=== PATIENT | female | born 1975 | race Caucasian/White ===

== ENCOUNTER 2018-04-23 09:31 | Observation (INO) ==
[2018-04-23] MEDS ORDERED: Lidocaine 1%/Epinephrine 1:100,000 Inj 20 ML Vial INFILTRATN ONE (09:54)
[2018-04-23] MEDS ORDERED: Vancomycin Inj 1 GM/200 ML PIGGYBACK IV.SIG ONE (09:57)
--- NOTE | 2018-04-23 09:57 | ED ---
HPI General Chief complaint: Skin/Abscess/Foreign Body Stated complaint: Right side oral swelling Time Seen by Provider: 04/23/18 09:46 Source: patient, RN notes reviewed and old records reviewed Mode of arrival: ambulatory Limitations: no limitations History of Present Illness HPI narrative: 43-year-old female presents to the emergency department for evaluation of facial abscess that started 2 days ago and has worsened. She states she believed to start with an ingrown hair at the corner of her right mouth. Since then she has had swelling to the right cheek. She denies any fevers or chills. She has type I diabetic and states that she is on Lantus. She also has a fast acting insulin that she can use, but does not use very often. She does not know what her blood glucose is at this time and has not checked it recently. She denies any other medical problems. Current pain is 10 /10, aching and throbbing, without radiation. Moderate severity. MD complaint: abscess/boil Onset (ago): day(s) (2) Location: face Severity: moderate Severity scale (1-10): 10 Quality: aching Pain Consistency: constant Relieving factors: none Exacerbating factors: none Context: none Associated symptoms: denies other symptoms Treatments prior to arrival: NSAID Related Data Home Medications Medication Instructions Recorded Confirmed insulin glargine [Lantus Solostar 25 unit SUB-Q DAILY 04/23/18 04/23/18 U-100 Insulin] Allergies Allergy/AdvReac Type Severity Reaction Status Date / Time No Known Allergies Allergy Mild Abdominal Uncoded 04/23/18 09:56 Pain Review of Systems Except as stated in HPI: all other systems reviewed are negative PMFSH Medical History Medical History Diabetes mellitus (Acute) [place] teeth extracted (Acute) Family History Family History Mother HTN (hypertension) Father Diabetes Heart disease Social History Social History Substance History: No History of Abuse Second Hand Smoke Exposure: No Smoking Status: Never smoker How Often Do You Have a Drink Containing Alcohol: Never Recent Travel in [facility] within the Last 8 Weeks: No Recent Out of Country Travel within the Last 8 Weeks: No Exam Narrative Exam Narrative: GENERAL: Well-nourished, well-developed female patient, afebrile. SKIN: Focused skin assessment warm/dry. Patient has area of induration to the cheek, just lateral to the right side of the mouth with significant swelling. No active drainage. No swelling that extends beyond the mandibular edge HEAD: Normocephalic. Atraumatic EYES: No scleral icterus. No injection or drainage. NECK: Supple, trachea midline. No JVD or lymphadenopathy. CARDIOVASCULAR: Regular rate and rhythm without murmurs, gallops, or rubs. RESPIRATORY: Breath sounds equal bilaterally. No accessory muscle use. Lung sounds are clear to auscultation GASTROINTESTINAL: Abdomen soft, non-tender, nondistended. MUSCULOSKELETAL: No cyanosis, or edema. BACK: No obvious deformity. Procedures Abscess I/D Site: face Side (if applicable): right Anesthetic used: with epi Technique: other (small puncture with #11 blade) Packing used?: none Course Initial Documented Vital Signs Temperature 98.1 F 04/23/18 09:37 Pulse Rate 90 04/23/18 09:37 Respiratory Rate 14 04/23/18 09:37 Blood Pressure 138/76 04/23/18 09:37 Pulse Oximetry 98 04/23/18 09:37 Last Documented Vital Signs Temperature 98.8 F 04/24/18 08:00 Pulse Rate 84 04/24/18 03:44 Respiratory Rate 18 04/24/18 08:00 Blood Pressure 116/66 04/24/18 08:00 Pulse Oximetry 96 04/24/18 08:00 Medical Decision Making SOPHIA Attestation SOPHIA supervised visit: Yes Attestation: The history, exam, and medical decision-making in the associated midlevel provider note were completed with my assistance. I reviewed and agree with the findings presented. I attest that I had a [id number] encounter with the patient on the same day, and personally performed and documented my assessment and findings in the medical record. *My assessment and Findings:This is a 43 year old female with history of type 1 diabetes who has an abscess on the right face. She has an impressive exam with extension of fluctuance up to the maxilla. Superficial incision and drainage was performed by ED nurse practitioner and pt will be admitted for IV antibiotics due to her history of T1DM. MDM Narrative Medical decision making narrative: 43-year-old female presents to the emergency department for facial abscess with significant swelling for 2 days. Patient is type I diabetic. She does not know what her blood sugar has been running. I discussed my attending physician, Dr. Erickson, who also examined patient. She recommends labs, admission. IV access is obtained. CBC, BMP, lactic acid, blood cultures 2, CT facial bones with IV contrast are ordered and pending. Tetanus immunization is updated. Patient is given normal saline 1 L IV bolus, vancomycin 1 g IV. Patient is given [place] 5/325 mg p.o. for pain. Patient gives verbal consent for drainage. CBC shows leukocytosis of 12.0. BMP shows carbon dioxide of 18.1, hyperglycemis of 169. Lactic acid is 0.9. UPT is negative. CT of the facial bones shows soft tissue swelling and phlegmonous changes over the right malar eminence without evidence of abscess. Residents accepted admission. Lab Data Lab results reviewed: Yes I reviewed the patient's lab results. Result diagrams: 04/24/18 05:40 04/24/18 05:40 Lab Results 04/23/18 04/23/18 04/23/18 Range/Units 10:18 10:18 10:18 WBC 12.0 H (4.0-11.0) th/mm3 RBC 4.80 (4.00-5.30) mil/mm3 Hgb 14.4 (11.6-15.3) gm/dL Hct 43.1 (35.0-46.0) % MCV 89.8 (80.0-100.0) fL MCH 30.0 (27.0-34.0) pg MCHC 33.4 (32.0-36.0) % RDW 14.1 (11.6-17.2) % Plt Count 296 (150-450) th/mm3 MPV 8.6 (7.0-11.0) fL Neut % (Auto) 79.8 H (16.0-70.0) % Lymph % (Auto) 11.9 (9.0-44.0) % Thayer % (Auto) 6.3 (0.0-8.0) % Eos % (Auto) 1.6 (0.0-4.0) % Baso % (Auto) 0.4 (0.0-2.0) % Neut # (Auto) 9.6 H (1.8-7.7) th/mm3 Lymph # (Auto) 1.4 (1.0-4.8) th/mm3 Thayer # (Auto) 0.8 (0.0-0.9) th/mm3 Eos # (Auto) 0.2 (0.0-0.4) th/mm3 Baso # (Auto) 0.1 (0.0-0.2) th/mm3 WBC Differential . Differential Comment Auto diff final Sodium 136 (136-145) meq/L Potassium 4.0 (3.5-5.1) meq/L Chloride 104 (98-107) meq/L Carbon Dioxide 18.1 L (21.0-32.0) meq/L Anion Gap 14 (5-15) meq/L BUN 14 (7-18) mg/dL Creatinine 0.54 (0.50-1.00) mg/dL Estimated GFR Greater than 89 (>89) mL/min POC Glucose (68-110) mg/dl Random Glucose 169 H (74-106) mg/dL Lactic Acid 0.9 (0.4-2.0) mmol/L Calcium 8.5 (8.5-10.1) mg/dL 04/23/18 04/23/18 04/23/18 Range/Units 17:01 18:00 21:38 WBC (4.0-11.0) th/mm3 RBC (4.00-5.30) mil/mm3 Hgb (11.6-15.3) gm/dL Hct (35.0-46.0) % MCV (80.0-100.0) fL MCH (27.0-34.0) pg MCHC (32.0-36.0) % RDW (11.6-17.2) % Plt Count (150-450) th/mm3 MPV (7.0-11.0) fL Neut % (Auto) (16.0-70.0) % Lymph % (Auto) (9.0-44.0) % Thayer % (Auto) (0.0-8.0) % Eos % (Auto) (0.0-4.0) % Baso % (Auto) (0.0-2.0) % Neut # (Auto) (1.8-7.7) th/mm3 Lymph # (Auto) (1.0-4.8) th/mm3 Thayer # (Auto) (0.0-0.9) th/mm3 Eos # (Auto) (0.0-0.4) th/mm3 Baso # (Auto) (0.0-0.2) th/mm3 WBC Differential Differential Comment Sodium (136-145) meq/L Potassium (3.5-5.1) meq/L Chloride (98-107) meq/L Carbon Dioxide (21.0-32.0) meq/L Anion Gap (5-15) meq/L BUN (7-18) mg/dL Creatinine (0.50-1.00) mg/dL Estimated GFR (>89) mL/min POC Glucose 41 L* 132 H 262 H (68-110) mg/dl Random Glucose (74-106) mg/dL Lactic Acid (0.4-2.0) mmol/L Calcium (8.5-10.1) mg/dL 04/24/18 04/24/18 04/24/18 Range/Units 05:40 05:40 08:41 WBC 8.8 (4.0-11.0) th/mm3 RBC 4.35 (4.00-5.30) mil/mm3 Hgb 13.1 (11.6-15.3) gm/dL Hct 39.2 (35.0-46.0) % MCV 90.2 (80.0-100.0) fL MCH 30.2 (27.0-34.0) pg MCHC 33.5 (32.0-36.0) % RDW 14.0 (11.6-17.2) % Plt Count 269 (150-450) th/mm3 MPV 8.5 (7.0-11.0) fL Neut % (Auto) (16.0-70.0) % Lymph % (Auto) (9.0-44.0) % Thayer % (Auto) (0.0-8.0) % Eos % (Auto) (0.0-4.0) % Baso % (Auto) (0.0-2.0) % Neut # (Auto) (1.8-7.7) th/mm3 Lymph # (Auto) (1.0-4.8) th/mm3 Thayer # (Auto) (0.0-0.9) th/mm3 Eos # (Auto) (0.0-0.4) th/mm3 Baso # (Auto) (0.0-0.2) th/mm3 WBC Differential Differential Comment Sodium 145 (136-145) meq/L Potassium 3.3 L (3.5-5.1) meq/L Chloride 110 H (98-107) meq/L Carbon Dioxide 25.0 (21.0-32.0) meq/L Anion Gap 10 (5-15) meq/L BUN 13 (7-18) mg/dL Creatinine 0.44 L (0.50-1.00) mg/dL Estimated GFR Greater than 89 (>89) mL/min POC Glucose 58 L (68-110) mg/dl Random Glucose 46 L* D (74-106) mg/dL Lactic Acid (0.4-2.0) mmol/L Calcium 7.8 L (8.5-10.1) mg/dL 04/24/18 Range/Units 09:29 WBC (4.0-11.0) th/mm3 RBC (4.00-5.30) mil/mm3 Hgb (11.6-15.3) gm/dL Hct (35.0-46.0) % MCV (80.0-100.0) fL MCH (27.0-34.0) pg MCHC (32.0-36.0) % RDW (11.6-17.2) % Plt Count (150-450) th/mm3 MPV (7.0-11.0) fL Neut % (Auto) (16.0-70.0) % Lymph % (Auto) (9.0-44.0) % Thayer % (Auto) (0.0-8.0) % Eos % (Auto) (0.0-4.0) % Baso % (Auto) (0.0-2.0) % Neut # (Auto) (1.8-7.7) th/mm3 Lymph # (Auto) (1.0-4.8) th/mm3 Thayer # (Auto) (0.0-0.9) th/mm3 Eos # (Auto) (0.0-0.4) th/mm3 Baso # (Auto) (0.0-0.2) th/mm3 WBC Differential Differential Comment Sodium (136-145) meq/L Potassium (3.5-5.1) meq/L Chloride (98-107) meq/L Carbon Dioxide (21.0-32.0) meq/L Anion Gap (5-15) meq/L BUN (7-18) mg/dL Creatinine (0.50-1.00) mg/dL Estimated GFR (>89) mL/min POC Glucose 81 (68-110) mg/dl Random Glucose (74-106) mg/dL Lactic Acid (0.4-2.0) mmol/L Calcium (8.5-10.1) mg/dL Imaging Data Radiologist's impression: Face CT 04/23/18 09:57 CONCLUSION: 1. Soft tissue swelling and phlegmonous changes over the right malar eminence without evidence of abscess Discharge Plan Discharge Disposition Patient Disposition: 30 Still Patient Discharge Details Diagnosis: Cellulitis and abscess of face Physicians Team ED Provider: [place] Erickson ED Midlevel Provider: Kasey Rodriguez Primary Care Provider: Primary Care Stephanie De León Attending Provider: Dayan Victor Status ED Status: Left Department Discharge Information Discharge Date/Time: 04/23/18 16:54
[2018-04-23] MEDS ORDERED: Sod Chloride 0.9% Inj 1,000 ML IV.SIG ONE (10:00)
[2018-04-23] MEDS ORDERED: Tetanus/Diphtheria Toxoid Adult Vaccine Inj 0.5 ML Vial IM ONE (10:02)
[2018-04-23] MEDS ORDERED: Vancomycin Inj 1,000 MG in Sodium Chlor 0.9% Inj 250 ML IV.SIG ONE (10:15)
[2018-04-23 10:31] LABS: Baso # (Auto) 0.1 th/mm3 (0.0-0.2); Baso % (Auto) 0.4 % (0.0-2.0); Eos # (Auto) 0.2 th/mm3 (0.0-0.4); Eos % (Auto) 1.6 % (0.0-4.0); Hematocrit 43.1 % (35.0-46.0); Hemoglobin 14.4 gm/dL (11.6-15.3); Lymph # (Auto) 1.4 th/mm3 (1.0-4.8); Lymph % (Auto) 11.9 % (9.0-44.0); Mean Corpuscular HGB Conc 33.4 % (32.0-36.0); Mean Corpuscular Volume 89.8 fL (80.0-100.0); Mean Platelet Volume 8.6 fL (7.0-11.0); Mono # (Auto) 0.8 th/mm3 (0.0-0.9); Mono % (Auto) 6.3 % (0.0-8.0); Neut # (Auto) 9.6 th/mm3 (1.8-7.7); Neut % (Auto) 79.8 % (16.0-70.0); Platelet Count 296 th/mm3 (150-450); Red Cell Distribution Width 14.1 % (11.6-17.2)
[2018-04-23] MEDS ORDERED: Lidocaine 1%/Epinephrine 1:100,000 Inj 30 ML Vial INFILTRATN ONE (10:45)
[2018-04-23 10:53] LABS: Anion Gap 14 meq/L (5-15); Blood Urea Nitrogen 14 mg/dL (7-18); Calcium 8.5 mg/dL (8.5-10.1); Carbon Dioxide 18.1 meq/L (21.0-32.0); Chloride 104 meq/L (98-107); Glomerular Filtration Rate Greater Than 89 mL/min (>89); Glucose,Random 169 mg/dL (74-106); Sodium 136 meq/L (136-145)
--- NOTE | 2018-04-23 13:31 | CT ---
EXAM DATE: 04/23/2018 1:24 PM EDT AGE/SEX: 43 years / Female INDICATIONS: Right side facial swelling and pain. CLINICAL DATA: This is the patient's initial encounter. Patient reports that signs and symptoms have been present for 2 days and indicates a pain score of 8/10. MEDICAL/SURGICAL HISTORY: None. . [place] teeth removed. RADIATION DOSE: 56.28 CTDI (mGy) COMPARISON: No prior exams available for comparison. TECHNIQUE: Contiguous images in the axial and coronal planes were obtained using helical multirow de tector technique with 80 ml Omnipaque 350 (iohexol) nonionic water-soluble contrast as a single exam dose. Using automated exposure control and adjustment of the mA and/or kV according to patient size , radiation dose was kept as low as reasonably achievable to obtain optimal diagnostic quality images . DICOM format image data is available electronically for review and comparison. FINDINGS: There is soft tissue swelling over the malar eminence in the subcutaneous tissues with phlegmon measu ring 2 cm in diameter but no evidence of abscess. There is benign mucosal disease involving the maxil robert antra bilaterally. Bone windows are unremarkable. The parotid and submandibular glands demonstra te no abnormality. No deeply infiltrating lesions are identified. CONCLUSION: 1. Soft tissue swelling and phlegmonous changes over the right malar eminence without evidence of ab scess Electronically signed by: Haider Chamorro MD 04/23/2018 1:29 PM EDT
--- NOTE | 2018-04-23 14:20 | P.HPFP ---
History of Present Illness Primary Care Physician: No Primary Care Physician <Dayan Victor 04/24/18 07:15> No Primary Care Physician <Roslyn Pringle 04/23/18 14:20> Chief Complaint: facial swelling and pain <Roslyn Pringle 04/23/18 19:29> History of Present Illness: 43 year old female with history of DM presented urgent care earlier today for right-sided facial swelling and pain that started 3 days ago, but worsened significantly last night. Patient states that it started out as a small pimple, or ingrown hair near the right corner of her mouth, no known bug bites. This morning when she woke with right cheek redness and swelling, which extended from her chin up under her eye. No blurry vision or blindness. She states that her eye is slightly bloodshot from accidently hitting her head about 1 week ago. No direct trauma to the eye or face that she remembers. She states that she was still able to open and see out of her right eye, but that the swelling made it more difficult to do so. She also noticed scant pus-like discharge from a single central point of the swollen area. Her face has been very sensitive to light touch and the pain is worse when speaking or chewing. She has avoided eating any food since yesterday for this reason. She has never experienced this in the past. She has taken 2 tablets of Aleve today with no relief. Denies headache, dizziness, nausea, vomiting, trouble swallowing or breathing, decreased range of motion of the neck, swelling of the upper eye lid or neck, chest pain, or shortness of breath. She last took her lantus this morning. She currently lives alone in a town house in [place]. She works as [employer]. <Roslyn Pringle 04/23/18 19:29> - Diagnosis (1) Cellulitis and abscess of face (2) Diabetes mellitus <Dayan Victor 04/24/18 07:15> (1) Cellulitis and abscess of face (2) Diabetes mellitus (3) Nutrition, metabolism, and development symptoms (4) DVT prophylaxis <Roslyn Pringle 04/23/18 18:39> Inpatient Certification: Corrected documentation: Pt is admitted under observation. <Dayan Victor 04/24/18 07:15> I certify that the inpatient services were ordered in accordance with Medicare regulations governing the order. This includes certification that hospital inpatient services are reasonable and necessary and in the case of services not specified as inpatient-only under 42 CFR 419.22(n), that they are appropriately provided as inpatient services in accordance to with the 2-midnight benchmark under 43 CFR 412.3(e) <Roslyn Pringle 04/23/18 14:20> Review of Systems Constitutional: Reports fever(s) (subjective fever last night ), Denies chills, Denies night sweats <Roslyn Pringle 04/23/18 15:38> Eyes: Reports change in vision <Roslyn Pringle 04/23/18 15:38> Ears, Nose, Mouth, and Throat: Reports facial pain, Denies ear pain, Denies hearing loss <Roslyn Pringle 04/23/18 15:38> Cardiovascular: Denies chest pain <Roslyn Pringle 04/23/18 15:38> Respiratory: Denies chest congestion, Denies shortness of breath <Roslyn Pringle 04/23/18 15:38> Gastrointestinal: Denies abdominal pain, Denies constipation, Denies nausea, Denies vomiting <Roslyn Pringle 04/23/18 15:38> PMFSH - History History Provided By: Patient <Roslyn Pringle 04/23/18 14:20> - Medical History Medical History: Medical History (Last Updated 04/23/18 @ 18:57 by Roslyn Pringle) Diabetes mellitus [place] teeth extracted <Dayan Victor - 04/24/18 07:15> Medical History (Last Updated 04/23/18 @ 18:57 by Roslyn Pringle) Diabetes mellitus [place] teeth extracted <Roslyn Pringle 04/23/18 19:29> - Family History Family History: Family History (Last Updated 04/23/18 @ 18:57 by Roslyn Pringle) Mother HTN (hypertension) Father Diabetes Heart disease <Dayan Victor - 04/24/18 07:15> Family History (Last Updated 04/23/18 @ 18:57 by Roslyn Pringle) Mother HTN (hypertension) Father Diabetes Heart disease <Roslyn Pringle 04/23/18 19:29> - Tobacco History Second Hand Smoke Exposure: No <PinoRoslyn Kelsie 04/23/18 14:20> Smoking Status: Never smoker <PinoPamelaRoslyn B 04/23/18 14:20> - Alcohol History How Often Do You Have a Drink Containing Alcohol: Never <PinoRoslyn Kelsie 14:20> - Substance Use History Substance History: No History of Abuse <PinoRoslyn B 04/23/18 19:29> - Travel History Recent Travel in the [facility] Within the Last 8 Weeks: No <PinoRoslyn B 14:20> Recent Travel Out of the Country Within the Last 8 Weeks: No <PinoRoslyn B 04/23/18 14:20> - Immunization History Tetanus Immunization: Unsure <PinoRoslyn B 04/23/18 14:20> Medications and Allergies Allergies Allergy/AdvReac Type Severity Reaction Status Date / Time No Known Allergies Allergy Mild Abdominal Uncoded 04/23/18 09:56 Pain <Dayan Victor 04/24/18 07:15> Home Medications Medication Instructions Recorded Confirmed Type insulin glargine [Lantus Solostar 25 unit SUB-Q DAILY 04/23/18 04/23/18 History U-100 Insulin] <Dayan Victor 04/24/18 07:15> Active Medications: Active Medications Dextrose (D50w Vial) 50 ml IV.PUSH UNSCH PRN PRN Reason: PER HYPOGLYCEMIA PROTOCOL Glucagon (Glucagon Inj) 1 mg OTHER PRN PRN PRN Reason: for Hypoglycemia Protocol Pharmacy Profile Note (Vancomycin Consult Pharmacy) 0 mls @ 0 mls/hr OTHER UNSCH MICHAEL Vancomycin HCl 1,000 mg/ (Sodium Chloride) 250 mls @ 250 mls/hr IV.SIG Q8H MICHAEL Last Infusion: 04/23/18 19:20 Dose: 250 mls/hr Insulin Aspart (Novolog Insulin Suppl Scale Inj) 0 unit SQ ACHS MICHAEL; Protocol Last Admin: 04/23/18 21:48 Dose: 5 unit Insulin Detemir (Levemir Inj) 25 unit SQ DAILY MICHAEL Ketorolac Tromethamine (Toradol Inj) 15 mg IV.PUSH Q6H PRN PRN Reason: PAIN 3-5; IF UABLE TO TAKE PO Stop: 04/28/18 17:39 Ketorolac Tromethamine (Toradol Inj) 30 mg IV.PUSH Q6H PRN PRN Reason: PAIN 6-10;IF UNABLE TO TAKE PO Stop: 04/28/18 17:39 Last Admin: 04/23/18 21:45 Dose: 30 mg Miscellaneous Information ([facility] Ordered Lab Info) 0 each OTHER ONCE ONE Stop: 04/24/18 09:46 Morphine Sulfate (Morphine Inj) 4 mg IV.PUSH Q3H PRN PRN Reason: BREAKTHROUGH PAIN Last Admin: 04/23/18 18:03 Dose: 4 mg Naloxone HCl (Narcan Inj) 0.4 mg IV.PUSH UNSCH PRN PRN Reason: SEE LABEL COMMENTS Sodium Chloride (Ns Flush) 2 ml IV.FLUSH BID MICHAEL Last Admin: 04/23/18 22:00 Dose: 2 ml Sodium Chloride (Ns Flush) 2 ml IV.FLUSH PRN PRN PRN Reason: FLUSH AFTER USING IV ACCESS <Dayan Victor - 04/24/18 07:15> Exam Vital signs: Vital Signs 04/23/18 09:37 04/23/18 11:35 04/23/18 12:02 Temperature 98.1 F Pulse Rate 90 Respiratory Rate 14 18 18 Blood Pressure 138/76 119/71 Pulse Oximetry 98 97 04/23/18 16:00 04/23/18 18:57 04/23/18 21:13 Temperature 98.8 F 98.6 F Pulse Rate 85 92 H Respiratory Rate 14 18 17 Blood Pressure 107/61 114/70 Pulse Oximetry 96 95 04/24/18 00:01 04/24/18 00:12 04/24/18 01:28 Temperature 98.3 F Pulse Rate 84 Respiratory Rate 14 17 Blood Pressure 86/49 L 113/56 L Pulse Oximetry 96 04/24/18 03:44 Temperature 98.1 F Pulse Rate 84 Respiratory Rate 16 Blood Pressure 102/59 L Pulse Oximetry 98 Intake & Output 04/23/18 04/24/18 04/24/18 18:59 06:59 18:59 Intake Total 980 / 980 Balance 980 / 980 Weight 86.581 kg Intake: Oral 980 / 980 Other: # Voids 1 Weight On Admission 190 kg <Dayan Victor - 04/24/18 07:15> Vital Signs 04/23/18 09:37 04/23/18 11:35 04/23/18 12:02 Temperature 98.1 F Pulse Rate 90 Respiratory Rate Blood Pressure 138/76 119/71 Pulse Oximetry 98 97 Intake & Output 04/22/18 04/23/18 04/23/18 18:59 06:59 18:59 Weight 86 kg <Roslyn Pringle Kelsie - 04/23/18 14:20> Narrative: Narrative: GENERAL:patient sitting up in bed watching television, mild distress due to pain SKIN: Warm and dry. HEAD: Atraumatic. Normocephalic. 4x4 cm area of erythematous induration without fluctuance over maxillary area. 10x10 cm area of surrounding edema and warmth, with mild erythema. No extension into neck. Central punctate lesion, likely where I&D was performed in ED. No active bleeding or drainage. No preorbital swelling. No pain to palpation of maxillary sinuses. EYES: No scleral icterus. Right eye mild conjunctival injection, per patient present for 1-2 weeks. ENT: No nasal bleeding or discharge. NECK: Trachea midline. No JVD. No swelling. CARDIOVASCULAR: Regular rate and rhythm. RESPIRATORY: No accessory muscle use. Clear to auscultation. Breath sounds equal bilaterally. GASTROINTESTINAL: Abdomen soft, non-tender, nondistended. MUSCULOSKELETAL: : Extremities without clubbing, cyanosis, or edema. No obvious deformities. NEUROLOGICAL: Awake and alert. No obvious cranial nerve deficits. Motor grossly within normal limits. Normal speech. <Roslyn Prinlge Kelsie - 04/23/18 19:29> Results - Labs Result diagrams: 04/23/18 10:18 04/23/18 10:18 <Dayan Victor - 04/24/18 07:15> Abnormal lab results 04/23/18 04/23/18 04/23/18 Range/Units 10:18 10:18 17:01 WBC 12.0 H (4.0-11.0) th/mm3 Neut % (Auto) 79.8 H (16.0-70.0) % Neut # (Auto) 9.6 H (1.8-7.7) th/mm3 Carbon Dioxide 18.1 L (21.0-32.0) meq/L POC Glucose 41 L* (68-110) mg/dl Random Glucose 169 H (74-106) mg/dL 04/23/18 04/23/18 Range/Units 18:00 21:38 WBC (4.0-11.0) th/mm3 Neut % (Auto) (16.0-70.0) % Neut # (Auto) (1.8-7.7) th/mm3 Carbon Dioxide (21.0-32.0) meq/L POC Glucose 132 H 262 H (68-110) mg/dl Random Glucose (74-106) mg/dL Short CBC 04/23/18 Range/Units 10:18 WBC 12.0 H (4.0-11.0) th/mm3 Hgb 14.4 (11.6-15.3) gm/dL Hct 43.1 (35.0-46.0) % Plt Count 296 (150-450) th/mm3 [facility] 04/23/18 10:18 Sodium 136 Potassium 4.0 Chloride 104 Carbon Dioxide 18.1 L BUN 14 Creatinine 0.54 Calcium 8.5 <Dayan Victor - 04/24/18 07:15> Abnormal lab results 04/23/18 04/23/18 Range/Units 10:18 10:18 WBC 12.0 H (4.0-11.0) th/mm3 Neut % (Auto) 79.8 H (16.0-70.0) % Neut # (Auto) 9.6 H (1.8-7.7) th/mm3 Carbon Dioxide 18.1 L (21.0-32.0) meq/L Random Glucose 169 H (74-106) mg/dL Short CBC 04/23/18 Range/Units 10:18 WBC 12.0 H (4.0-11.0) th/mm3 Hgb 14.4 (11.6-15.3) gm/dL Hct 43.1 (35.0-46.0) % Plt Count 296 (150-450) th/mm3 [facility] 04/23/18 10:18 Sodium 136 Potassium 4.0 Chloride 104 Carbon Dioxide 18.1 L BUN 14 Creatinine 0.54 Calcium 8.5 <Roslyn Pringle - 04/23/18 14:20> - Imaging Impressions Face CT 04/23/18 09:57 CONCLUSION: 1. Soft tissue swelling and phlegmonous changes over the right malar eminence without evidence of abscess <Dayan Victor - 04/24/18 07:15> Impressions Face CT 04/23/18 09:57 CONCLUSION: 1. Soft tissue swelling and phlegmonous changes over the right malar eminence without evidence of abscess <Roslyn Pringle - 04/23/18 14:20> Caprinacndace VTE Risk Assessment Caprini VTE Risk Assessment: No/Low Risk (score <= 1) <Roslyn Pringle - 04/23 19:29> Caprini Risk Assessment Model: Point Value = 1 Point Value = 2 Point Value = 3 Point Value = 5 Age 41-60 Minor surgery BMI > 25 kg/m2 Swollen legs Varicose veins or History of unexplained or recurrent spontaneous Oral contraceptives or hormone replacement Sepsis (< 1 month) Serious lung disease, including pneumonia (< 1 month) Abnormal pulmonary function Acute myocardial infarction Congestive heart failure (< 1 month) History of inflammatory bowel disease Medical patient at bed rest Age 61-74 Arthroscopic surgery Major open surgery (> 45 min) Laparoscopic surgery (> 45 min) Malignancy Confined to bed (> 72 hours) Immobilizing plaster cast Central venous access Age >= 75 History of VTE Family history of VTE Factor V Leiden Prothrombin [id number] Lupus anticoagulant Anticardiolipin antibodies Elevated serum homocysteine Heparin-induced thrombocytopenia Other congenital or acquired thrombophilia Stroke (< 1 month) Elective arthroplasty Hip, pelvis, or leg fracture Acute spinal cord injury (< 1 month) <Dayan Victor - 04/24/18 07:15> Point Value = 1 Point Value = 2 Point Value = 3 Point Value = 5 Age 41-60 Minor surgery BMI > 25 kg/m2 Swollen legs Varicose veins or History of unexplained or recurrent spontaneous Oral contraceptives or hormone replacement Sepsis (< 1 month) Serious lung disease, including pneumonia (< 1 month) Abnormal pulmonary function Acute myocardial infarction Congestive heart failure (< 1 month) History of inflammatory bowel disease Medical patient at bed rest Age 61-74 Arthroscopic surgery Major open surgery (> 45 min) Laparoscopic surgery (> 45 min) Malignancy Confined to bed (> 72 hours) Immobilizing plaster cast Central venous access Age >= 75 History of VTE Family history of VTE Factor V Leiden Prothrombin [id number] Lupus anticoagulant Anticardiolipin antibodies Elevated serum homocysteine Heparin-induced thrombocytopenia Other congenital or acquired thrombophilia Stroke (< 1 month) Elective arthroplasty Hip, pelvis, or leg fracture Acute spinal cord injury (< 1 month) <Roslyn Pringle - 04/23/18 14:20> Prophylaxis Regimen: Total Risk Factor Score Risk Level Prophylaxis Regimen 0-1 Low Early ambulation 2 Moderate Order ONE of the following: *Sequential Compression Device (SCD) *Heparin 5000 units SQ BID 3-4 Higher Order ONE of the following medications: *Heparin 5000 units SQ TID *Enoxaparin/Lovenox 40 mg SQ daily (WT < 150 kg, CrCl > 30 mL/min) *Enoxaparin/Lovenox 30 mg SQ daily (WT < 150 kg, CrCl > 10-29 mL/min) *Enoxaparin/Lovenox 30 mg SQ BID (WT < 150 kg, CrCl > 30 mL/min) AND/OR *Sequential Compression Device (SCD) 5 or more Highest Order ONE of the following medications: *Heparin 5000 units SQ TID (Preferred with Epidurals) *Enoxaparin/Lovenox 40 mg SQ daily (WT < 150 kg, CrCl > 30 mL/min) *Enoxaparin/Lovenox 30 mg SQ daily (WT < 150 kg, CrCl > 10-29 mL/min) *Enoxaparin/Lovenox 30 mg SQ BID (WT < 150 kg, CrCl > 30 mL/min) AND *Sequential Compression Device (SCD) <Dayan Victor - 04/24/18 07:15> Total Risk Factor Score Risk Level Prophylaxis Regimen 0-1 Low Early ambulation 2 Moderate Order ONE of the following: *Sequential Compression Device (SCD) *Heparin 5000 units SQ BID 3-4 Higher Order ONE of the following medications: *Heparin 5000 units SQ TID *Enoxaparin/Lovenox 40 mg SQ daily (WT < 150 kg, CrCl > 30 mL/min) *Enoxaparin/Lovenox 30 mg SQ daily (WT < 150 kg, CrCl > 10-29 mL/min) *Enoxaparin/Lovenox 30 mg SQ BID (WT < 150 kg, CrCl > 30 mL/min) AND/OR *Sequential Compression Device (SCD) 5 or more Highest Order ONE of the following medications: *Heparin 5000 units SQ TID (Preferred with Epidurals) *Enoxaparin/Lovenox 40 mg SQ daily (WT < 150 kg, CrCl > 30 mL/min) *Enoxaparin/Lovenox 30 mg SQ daily (WT < 150 kg, CrCl > 10-29 mL/min) *Enoxaparin/Lovenox 30 mg SQ BID (WT < 150 kg, CrCl > 30 mL/min) AND *Sequential Compression Device (SCD) <Roslyn Pringle Kelsie - 04/23/18 14:20> Assessment and Plan - Assessment (1) Cellulitis and abscess of face Code(s): L03.211 - Cellulitis of face; L02.01 - Cutaneous abscess of face Status: Acute (2) Diabetes mellitus Code(s): E11.9 - Type 2 diabetes mellitus without complications Status: Chronic <Dayan Victor - 04/24/18 07:15> (1) Cellulitis and abscess of face Code(s): L03.211 - Cellulitis of face; L02.01 - Cutaneous abscess of face Status: Acute Plan: Patient presented with facial swelling and erythema. I&D performed in the ED drained scant discharge, wound culture pending. Patient had a WBC of 12.0 in the ED, but did not otherwise meet sepsis criteria. Labs: -CBC in ED showed WBC count of 12.0 -Blood cultures pending -Wound culture pending Medications: -Will give Vancomycin 1g q12h, pharmacy to follow Vancomycin Trough -Will order Ketorolac 15 mg IV PRN pain 3-5 and Ketorolac 30 mg IV PRN pain 6-10 -Will order Morphine 4mg IV PRN breakthrough pain (2) Diabetes mellitus Code(s): E11.9 - Type 2 diabetes mellitus without complications Status: Acute Plan: Patient has a history of diabetes mellitus for which she takes Lantus 25 units daily in the morning. She took her lantus this morning and notes that she has not eaten today. BGL this morning on arrival to ED was 169. -Will change Lantus to Levemir 25 units daily with insulin sliding scale -Will place on diabetic diet -Hypoglycemia protocol ordered (3) Nutrition, metabolism, and development symptoms Code(s): R63.8 - Other symptoms and signs concerning food and fluid intake Status: Acute Plan: Fluid: none Electrolytes: No abnormalities noted. Will continues to monitor and replete as needed. Nutrition: Diabetic diet (4) DVT prophylaxis Status: Acute Plan: DVT prophylaxis: Early ambulation. Bilateral SCDs. <PinoRoslyn B - 04/23/18 18:39> - Assessment and Plan 43 y/o F with hx of DM presenting to the ED with facial pain and swelling that started 3 days ago. Continue to give antibiotics and continue to monitor. <Roslyn Pringle - 04/23/18 19:29> <Dayan Victor - Last Filed: 04/24/18 07:15> (2) Diabetes mellitus Qualifiers: Diabetes mellitus type: type 2 Diabetes mellitus complication status: without complication <Dayan Victor - Last Filed: 04/24/18 07:15> (2) Diabetes mellitus Qualifiers: Diabetes mellitus type: type 2 Diabetes mellitus complication status: without complication
[2018-04-23] MEDS ORDERED: Dextrose 50% in Water 50 ML Vial IV.PUSH PRN (15:48)
[2018-04-23] MEDS ORDERED: Vancomycin Consult Pharmacy 1 EACH OTHER SCH (16:19)
[2018-04-23] MEDS ORDERED: Ketorolac Inj 30 MG/ML (IVP) Vial IV.PUSH PRN ×2 (17:40)
[2018-04-23] MEDS ORDERED: Naloxone Inj 0.4 MG/ML Vial IV.PUSH PRN (17:40)
[2018-04-23] MEDS ORDERED: Ibuprofen 400 MG Tablet PO PRN (17:40)
[2018-04-23] MEDS ORDERED: Morphine Inj 4 MG/ML Vial IV.PUSH PRN (17:40)
[2018-04-23] MEDS: Insulin NovoLOG Aspart Correctional Sugar Inj SQ SCH ×2 (17:49→21:48)
[2018-04-23] MEDS: Vancomycin Inj 1,000 MG in Sodium Chlor 0.9% Inj 250 ML IV.SIG SCH (18:07)
[2018-04-23] MEDS ORDERED: Vancomycin Inj 1 GM/200 ML PIGGYBACK IV.SIG SCH (22:00)
--- NOTE | 2018-04-24 07:08 | P.PNFP ---
Subjective Interval history: This progress note is written in conjunction with resident H&P dated 04/23/2018. Daniela Silva is a 43yo lady with h/o diabetes mellitus admitted for right sided facial pain and swelling, worsening over three days, which initially began as a small pimple. For further details, please see resident H&P. Overnight, Pt had an episode of hypoglycemia at 1700, most likely from decreased PO intake. This morning, she reports swelling is a little better. She denies any drainage. ROS: Per resident H&P. Significant for: subjective fever, facial swelling and pain. All other systems reviewed are negative. PMH/PSxH/SocHx/FamHx: Per resident H&P. Significant for: DM II. Nonsmoker. No alcohol or recreational drug use. Results - Labs Result diagrams: 04/24/18 05:40 04/24/18 05:40 Abnormal lab results 04/23/18 04/23/18 04/23/18 Range/Units 10:18 10:18 17:01 WBC 12.0 H (4.0-11.0) th/mm3 Neut % (Auto) 79.8 H (16.0-70.0) % Neut # (Auto) 9.6 H (1.8-7.7) th/mm3 Carbon Dioxide 18.1 L (21.0-32.0) meq/L POC Glucose 41 L* (68-110) mg/dl Random Glucose 169 H (74-106) mg/dL 04/23/18 04/23/18 Range/Units 18:00 21:38 WBC (4.0-11.0) th/mm3 Neut % (Auto) (16.0-70.0) % Neut # (Auto) (1.8-7.7) th/mm3 Carbon Dioxide (21.0-32.0) meq/L POC Glucose 132 H 262 H (68-110) mg/dl Random Glucose (74-106) mg/dL Short CBC 04/23/18 Range/Units 10:18 WBC 12.0 H (4.0-11.0) th/mm3 Hgb 14.4 (11.6-15.3) gm/dL Hct 43.1 (35.0-46.0) % Plt Count 296 (150-450) th/mm3 BMP 04/23/18 10:18 Sodium 136 Potassium 4.0 Chloride 104 Carbon Dioxide 18.1 L BUN 14 Creatinine 0.54 Calcium 8.5 - Imaging Impressions Face CT 04/23/18 09:57 CONCLUSION: 1. Soft tissue swelling and phlegmonous changes over the right malar eminence without evidence of abscess Physical Exam Vital signs: Vital Signs 04/23/18 09:37 04/23/18 11:35 04/23/18 12:02 Temperature 98.1 F Pulse Rate 90 Respiratory Rate 14 18 18 Blood Pressure 138/76 119/71 Pulse Oximetry 98 97 04/23/18 16:00 04/23/18 18:57 04/23/18 21:13 Temperature 98.8 F 98.6 F Pulse Rate 85 92 H Respiratory Rate 14 18 17 Blood Pressure 107/61 114/70 Pulse Oximetry 96 95 04/24/18 00:01 04/24/18 00:12 04/24/18 01:28 Temperature 98.3 F Pulse Rate 84 Respiratory Rate 14 17 Blood Pressure 86/49 L 113/56 L Pulse Oximetry 96 04/24/18 03:44 Temperature 98.1 F Pulse Rate 84 Respiratory Rate 16 Blood Pressure 102/59 L Pulse Oximetry 98 Intake & Output 04/23/18 04/24/18 04/24/18 18:59 06:59 18:59 Intake Total 980 / 980 Balance 980 / 980 Weight 86.581 kg Intake: Oral 980 / 980 Other: # Voids 1 Weight On Admission 190 kg Narrative: Per resident H&P. Significant for: In NAD, non toxic. Right face with swelling and mild erythema. There is an open wound along right chin, without drainage. Right anterior submandibular lymphadenopathy. No lesions in mouth; good dentition. Glucose at bedside during exam in 80s. Assessment and Plan - Assessment (1) Cellulitis and abscess of face Code(s): L03.211 - Cellulitis of face; L02.01 - Cutaneous abscess of face Status: Acute Plan: Patient presented with facial swelling and erythema. I&D performed in the ED drained scant discharge, wound culture pending. Patient had a WBC of 12.0 in the ED, now resolved Labs: -WBC 12--> 8 -Blood cultures pending -Wound culture pending Medications: -Will give Vancomycin 1g q12h, pharmacy to follow Vancomycin Trough -Ketorolac 15 mg IV PRN pain 3-5 and Ketorolac 30 mg IV PRN pain 6-10 -Morphine 4mg IV PRN breakthrough pain (2) Diabetes mellitus Code(s): E11.9 - Type 2 diabetes mellitus without complications Status: Chronic Plan: Patient has a history of diabetes mellitus for which she takes Lantus 25 units daily in the morning. She took her lantus this morning and notes that she has not eaten today. BGL this morning on arrival to ED was 169. -Lantus changed to Levemir 25 units daily with insulin sliding scale, per hospital formulary -diabetic diet -Hypoglycemia protocol ordered. Pt with episode of hypoglycemia at 1700, most likely from not eating, now resolved. May need to decrease long acting insulin dose if hypoglycemia continues. - Assessment and Plan 43 y/o F with hx of DM presenting to the ED with facial pain and swelling that started 3 days ago. Continue to give antibiotics and continue to monitor. Discharge Planning: Anticipate discharge in 1-2 days, as pt requires continued IV antibiotic therapy. - Attending Attestation Patient seen, examined, and discussed with resident team. 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
[2018-04-24 07:23] LABS: Hematocrit 39.2 % (35.0-46.0); Hemoglobin 13.1 gm/dL (11.6-15.3); Mean Corpuscular HGB Conc 33.5 % (32.0-36.0); Mean Corpuscular Hemoglobin 30.2 pg (27.0-34.0); Mean Corpuscular Volume 90.2 fL (80.0-100.0); Mean Platelet Volume 8.5 fL (7.0-11.0); Platelet Count 269 th/mm3 (150-450); Red Blood Count 4.35 mil/mm3 (4.00-5.30); White Blood Count 8.8 th/mm3 (4.0-11.0)
[2018-04-24] MEDS: Vancomycin Inj 1,000 MG in Sodium Chlor 0.9% Inj 250 ML IV.SIG SCH ×2 (07:39→18:17)
[2018-04-24 08:29] LABS: Anion Gap 10 meq/L (5-15); Blood Urea Nitrogen 13 mg/dL (7-18); Calcium 7.8 mg/dL (8.5-10.1); Chloride 110 meq/L (98-107); Glomerular Filtration Rate Greater Than 89 mL/min (>89); Potassium 3.3 meq/L (3.5-5.1); Sodium 145 meq/L (136-145)
[2018-04-24 08:40] LABS: Glucose,Random 46 mg/dL (74-106)
[2018-04-24] MEDS ORDERED: Pharmacy Ordered Lab Info OTHER ONE ×2 (09:45→22:45)
[2018-04-24] MEDS: Lactobacillus Acidophilus/L. Spores Tablet PO SCH ×3 (09:48→18:16)
[2018-04-24] MEDS: Insulin Detemir Inj 1,000 UNIT/10 ML Vial SQ SCH (09:48)
[2018-04-24] MEDS: Insulin NovoLOG Aspart Correctional Sugar Inj SQ SCH ×3 (09:49→18:17)
[2018-04-24] MEDS ORDERED: Potassium Chloride 10 MEQ ER Capsule PO ONE (10:30)
[2018-04-24] MEDS: Ketorolac Inj 30 MG/ML (IVP) Vial IV.PUSH SCH (18:13)
[2018-04-25] MEDS: Insulin NovoLOG Aspart Correctional Sugar Inj SQ SCH ×3 (01:55→13:54)
[2018-04-25] MEDS: Ketorolac Inj 30 MG/ML (IVP) Vial IV.PUSH SCH ×4 (02:06→15:11)
[2018-04-25] MEDS: Vancomycin Inj 1,000 MG in Sodium Chlor 0.9% Inj 250 ML IV.SIG SCH ×4 (03:46→09:56)
[2018-04-25] MEDS: Insulin Detemir Inj 1,000 UNIT/10 ML Vial SQ SCH (09:57)
[2018-04-25] MEDS: Lactobacillus Acidophilus/L. Spores Tablet PO SCH ×2 (09:57→13:54)
[2018-04-25 10:27] LABS: Hematocrit 41.7 % (35.0-46.0); Hemoglobin 13.8 gm/dL (11.6-15.3); Mean Corpuscular HGB Conc 33.1 % (32.0-36.0); Mean Corpuscular Hemoglobin 30.2 pg (27.0-34.0); Mean Corpuscular Volume 91.3 fL (80.0-100.0); Mean Platelet Volume 8.4 fL (7.0-11.0); Platelet Count 284 th/mm3 (150-450); Red Blood Count 4.57 mil/mm3 (4.00-5.30); White Blood Count 5.9 th/mm3 (4.0-11.0)
[2018-04-25 11:00] LABS: Anion Gap 7 meq/L (5-15); Blood Urea Nitrogen 12 mg/dL (7-18); Calcium 8.1 mg/dL (8.5-10.1); Carbon Dioxide 26.1 meq/L (21.0-32.0); Chloride 109 meq/L (98-107); Glomerular Filtration Rate Greater Than 89 mL/min (>89); Glucose,Random 253 mg/dL (74-106); Potassium 4.6 meq/L (3.5-5.1); Sodium 142 meq/L (136-145)
--- NOTE | 2018-04-25 12:17 | P.PNFP ---
Subjective Interval history: Patient seen and examined this morning. Patient states that the swelling feels like it has decreased since admission and states that the pain has also lessened. She still experiences pain when talking or chewing food , but notes that the Toradol helps significantly. No changes in vision, difficulty swallowing or notable discharge last night. No fevers, chills or flushing overnight. Denies nausea, vomiting, abdominal pain, urinary problems or leg pain. Discussed plan for discharge to home today with antibiotics and probiotics. Explained that taking Ibuprofen should help with pain and inflammation and that applying hot compresses may help. Noted that if the infection worsened at home that she could return to the ED. Patient is agreeable with plan and would like to return home. Her blood sugar has been labile will in the hospital, but patient attributes it to the change from her normal Lantus to Levemir here and change in food available to her while in hospital. <Roslyn Pringle - 04/25/18 16:54> Results - Labs Result diagrams: 04/25/18 09:44 04/25/18 09:44 <Dayan Victor - 04/25/18 20:11> Abnormal lab results 04/24/18 04/24/18 04/25/18 Range/Units 20:51 22:45 08:05 Chloride (98-107) meq/L POC Glucose 146 H 233 H (68-110) mg/dl Random Glucose (74-106) mg/dL Calcium (8.5-10.1) mg/dL Vancomycin Trough 12.2 H (5.0-10.0) mcg/mL 04/25/18 04/25/18 Range/Units 09:44 13:50 Chloride 109 H (98-107) meq/L POC Glucose 249 H (68-110) mg/dl Random Glucose 253 H D (74-106) mg/dL Calcium 8.1 L (8.5-10.1) mg/dL Vancomycin Trough (5.0-10.0) mcg/mL Short CBC 04/25/18 Range/Units 09:44 WBC 5.9 (4.0-11.0) th/mm3 Hgb 13.8 (11.6-15.3) gm/dL Hct 41.7 (35.0-46.0) % Plt Count 284 (150-450) th/mm3 BMP 04/25/18 09:44 Sodium 142 Potassium 4.6 D Chloride 109 H Carbon Dioxide 26.1 BUN 12 Creatinine 0.58 Calcium 8.1 L <WhitleyDayan palomares - 04/25/18 20:11> Abnormal lab results 04/24/18 04/24/18 04/24/18 Range/Units 12:19 20:51 22:45 Chloride (98-107) meq/L POC Glucose 196 H 146 H (68-110) mg/dl Random Glucose (74-106) mg/dL Calcium (8.5-10.1) mg/dL Vancomycin Trough 12.2 H (5.0-10.0) mcg/mL 04/25/18 04/25/18 Range/Units 08:05 09:44 Chloride 109 H (98-107) meq/L POC Glucose 233 H (68-110) mg/dl Random Glucose 253 H D (74-106) mg/dL Calcium 8.1 L (8.5-10.1) mg/dL Vancomycin Trough (5.0-10.0) mcg/mL Short CBC 04/25/18 Range/Units 09:44 WBC 5.9 (4.0-11.0) th/mm3 Hgb 13.8 (11.6-15.3) gm/dL Hct 41.7 (35.0-46.0) % Plt Count 284 (150-450) th/mm3 [facility] 04/25/18 09:44 Sodium 142 Potassium 4.6 D Chloride 109 H Carbon Dioxide 26.1 BUN 12 Creatinine 0.58 Calcium 8.1 L <Roslyn Pringle - 04/25/18 12:17> Physical Exam Vital signs: Vital Signs 04/25/18 00:00 04/25/18 04:00 04/25/18 07:22 Temperature 98.2 F 98 F 98.2 F Pulse Rate 90 85 81 Respiratory Rate 20 20 16 Blood Pressure 102/65 112/75 137/78 Pulse Oximetry 97 99 97 04/25/18 11:10 Temperature 98.5 F Pulse Rate 79 Respiratory Rate 14 Blood Pressure 111/70 Pulse Oximetry 95 Intake & Output 04/25/18 04/25/18 04/26/18 06:59 18:59 06:59 Intake Total 570 / 570 Balance 570 / 570 Intake: IV 250 / 250 Vancomycin Inj 1,000 MG In NS 250 / 250 Inj 250 ML @ 250 mls/hr IV.SIG Q8H MICHAEL Rx#:[id number] Oral 320 / 320 Other: # Voids 2 Date of Last Bowel Movement 04/25/18 <Dayan Victor - 04/25/18 20:11> Vital Signs 04/24/18 16:00 04/24/18 20:00 04/25/18 00:00 Temperature 99.1 F 88 F L 98.2 F Pulse Rate 92 H 85 90 Respiratory Rate 18 18 20 Blood Pressure 116/70 106/71 102/65 Pulse Oximetry 97 97 97 04/25/18 04:00 04/25/18 07:22 04/25/18 11:10 Temperature 98 F 98.2 F 98.5 F Pulse Rate 85 81 79 Respiratory Rate 20 16 14 Blood Pressure 112/75 137/78 111/70 Pulse Oximetry 99 97 95 Intake & Output 04/24/18 04/25/18 04/25/18 18:59 06:59 18:59 Intake Total 880 / 880 570 / 570 Balance 880 / 880 570 / 570 Intake: IV 250 / 250 Vancomycin Inj 1,000 MG In NS 250 / 250 Inj 250 ML @ 250 mls/hr IV.SIG Q8H MICHAEL Rx#:[id number] Oral 880 / 880 320 / 320 Other: # Voids 2 2 <Roslyn Pringle - 04/25/18 12:17> Narrative: GENERAL:patient resting comfortably, no acute distress SKIN: Warm and dry. HEAD: Atraumatic. Normocephalic. 4x4 cm area of induration without fluctuance over maxillary area, very mild erythema. 7x7 cm area of surrounding edema without warmth or erythema. Right anterior submandibular lymphadenopathy. No extension into neck. Central punctate lesion, likely where I&D was performed in ED. No active bleeding or drainage. No preorbital swelling. No pain to palpation of maxillary sinuses. No lesions in mouth; good dentition EYES: No scleral icterus. Right eye mild conjunctival injection, per patient present for 1-2 weeks. ENT: No nasal bleeding or discharge. NECK: Trachea midline. No JVD. No swelling. CARDIOVASCULAR: Regular rate and rhythm. RESPIRATORY: No accessory muscle use. Clear to auscultation. Breath sounds equal bilaterally. GASTROINTESTINAL: Abdomen soft, non-tender, nondistended. MUSCULOSKELETAL: : Extremities without clubbing, cyanosis, or edema. No obvious deformities. NEUROLOGICAL: Awake and alert. No obvious cranial nerve deficits. Motor grossly within normal limits. Normal speech. <Roslyn Pringle Kelsie - 04/25/18 16:54> Assessment and Plan - Assessment (1) Cellulitis and abscess of face Code(s): L03.211 - Cellulitis of face; L02.01 - Cutaneous abscess of face Status: Acute (2) Diabetes mellitus Code(s): E11.9 - Type 2 diabetes mellitus without complications Status: Chronic (3) DVT prophylaxis Status: Acute <ValenteMirlandee - 04/25/18 20:11> (1) Cellulitis and abscess of face Code(s): L03.211 - Cellulitis of face; L02.01 - Cutaneous abscess of face Status: Acute Plan: Patient presented with facial swelling and erythema. I&D performed in the ED drained scant discharge, wound culture pending. Patient had a WBC of 12.0 in the ED, now resolved Labs: -WBC 12 --> 5.9 -Blood cultures negative -Wound culture grew staph aureus Medications: -Will give Vancomycin 1g q12h, pharmacy to follow Vancomycin Trough. Will change to Clindamycin PO for discharge. -Ketorolac 15 mg IV PRN pain 3-5 and Ketorolac 30 mg IV PRN pain 6-10. Recommend Inbuprofen 800mg q8h at home for pain. -Recommend using warm compresses at home. (2) Diabetes mellitus Code(s): E11.9 - Type 2 diabetes mellitus without complications Status: Chronic Plan: Patient has a history of diabetes mellitus for which she takes Lantus 25 units daily in the morning. She took her lantus this morning and notes that she has not eaten today. BGL this morning on arrival to ED was 169. -Lantus changed to Levemir 25 units daily with insulin sliding scale, per hospital formulary -diabetic diet -Hypoglycemia protocol ordered. (3) DVT prophylaxis Status: Acute Plan: DVT prophylaxis: Early ambulation. Bilateral SCDs. <Roslyn Pringle Kelsie - 04/25/18 16:32> - Assessment and Plan 43 y/o F with hx of DM presenting to the ED with facial pain and swelling that started 3 days ago. Plan to switch from IV to PO antibiotics for discharge today. Patient agreeable with plan. <Roslyn Pringle - 04/25/18 16:54> Discussed Condition With: Dr. Victor <Roslyn Pringle - 04/25/18 16:54> Discharge Planning: Patient to be discharged home today. <Roslyn Pringle - 04/25/18 16:54> - Attending Attestation Patient seen and examined this morning, discussed with resident team. I agree with assessment and management as documented and discussed with me. Pt feels facial cellulitis is improving. She feels ready for discharge. Discharge home on clindamycin; discussed risks, benefits, side effects. <Dayan Victor - 04/25/18 20:11> <Roslyn Pringle - Last Filed: 04/25/18 16:32> (2) Diabetes mellitus Qualifiers: Diabetes mellitus type: type 2 Diabetes mellitus long winder tender insulin use: with long-term use Diabetes mellitus complication status: without complication Qualified Code(s): E11.9 - Type 2 diabetes mellitus without complications; Z79.4 - watermelon inspector (current) use of insulin <Dayan Victor - Last Filed: 04/25/18 20:11> (2) Diabetes mellitus Qualifiers: Diabetes mellitus type: type 2 Diabetes mellitus long-term insulin use: with long winder tender use Diabetes mellitus complication status: without complication Qualified Code(s): E11.9 - Type 2 diabetes mellitus without complications; Z79.4 - MCC (current) use of insulin <Roslyn Pringle - Last Filed: 04/25/18 16:32> (2) Diabetes mellitus Qualifiers: Diabetes mellitus type: type 2 Diabetes mellitus long winder tender insulin use: with long-term use Diabetes mellitus complication status: without complication Qualified Code(s): E11.9 - Type 2 diabetes mellitus without complications; Z79.4 - [facility] (current) use of insulin <Dayan Victor - Last Filed: 04/25/18 20:11> (2) Diabetes mellitus Qualifiers: Diabetes mellitus type: type 2 Diabetes mellitus long-term insulin use: with long winder tender use Diabetes mellitus complication status: without complication Qualified Code(s): E11.9 - Type 2 diabetes mellitus without complications; Z79.4 - MCC (current) use of insulin
[2018-04-26] MEDS ORDERED: Pharmacy Ordered Lab Info OTHER ONE (14:45)
--- NOTE | 2018-05-01 10:41 | P.DS ---
Date of admission: 04/23/18 14:14 Primary care physician: No Primary Care Physician Brief History from admission: 43 year old female with history of DM presented urgent care earlier today for right-sided facial swelling and pain that started 3 days ago, but worsened significantly last night. Patient states that it started out as a small pimple, or ingrown hair near the right corner of her mouth, no known bug bites. This morning when she woke with right cheek redness and swelling, which extended from her chin up under her eye. No blurry vision or blindness. She states that her eye is slightly bloodshot from accidently hitting her head about 1 week ago. No direct trauma to the eye or face that she remembers. She states that she was still able to open and see out of her right eye, but that the swelling made it more difficult to do so. She also noticed scant pus-like discharge from a single central point of the swollen area. Her face has been very sensitive to light touch and the pain is worse when speaking or chewing. She has avoided eating any food since yesterday for this reason. She has never experienced this in the past. She has taken 2 tablets of Aleve today with no relief. Denies headache, dizziness, nausea, vomiting, trouble swallowing or breathing, decreased range of motion of the neck, swelling of the upper eye lid or neck, chest pain, or shortness of breath. She last took her lantus this morning. She currently lives alone in a town house in [place]. She works as [employer]. DS: Diagnosis - Discharge Diagnosis (1) Cellulitis and abscess of face Status: Acute (2) Diabetes mellitus Status: Chronic (3) DVT prophylaxis Status: Acute DS: Medications - Discharge Medications Prescriptions: hydrocodone-acetaminophen [[place]] 1 tab PO Q6H PRN #12 tab PRN Reason: Pain DS: Summary Hospital Course: Patient is a 43-year-old female with history of type 1 DM well-controlled on Lantus 25 units a day who was admitted to observation for facial swelling and abscess. She did not meet sepsis criteria on admission. Facial CT showed soft tissue swelling and phlegmonous changes over the right malar eminence without evidence of abscess. I&D was performed in the ED which drained scant discharge. Wound culture grew staph aureus for which she was treated with 2 days of IV vancomycin, with significant decrease in induration, erythema and edema. Patient given ketorolac as needed for pain with morphine for breakthrough. Patient's home Lantus changed to Levemir 25 units a day with insulin sliding scale. Patient discharged in stable condition to home with 3 days of [place]. Recommended to continue hot compresses at home and alternate Tylenol and Ibuprofen for pain control. - Time Spent with Patient Total time spent providing and/or coordinating discharge services: - Quality: VTE Deep Vein Thrombosis/Pulmonary Embolism Present on Admission: No Results Procedures completed during hospitalization: I&D performed in emergency department - Impressions ITS Impressions Face CT 04/23/18 09:57 CONCLUSION: 1. Soft tissue swelling and phlegmonous changes over the right malar eminence without evidence of abscess Discharge Plan - Discharge Disposition Patient Disposition: 01 Discharge Home - Discharge Condition Condition: Stable - Discharge Order Discharge Orders: Discharge Order (Routine); Ordered 04/25/18 Ordered By: Joanne Dunbar - Discharge Details Anticipated Discharge Date: 04/25/18 - Physicians Team Primary Care Provider: Primary Care Stephanie De León Attending Provider: Dayan Victor
== END 2018-04-25 14:38 | disposition home or self-care (01) ==
LOC: NEPD 09:31 → NEPFCDU 09:31 → NEDA 09:31 → NEPHCDU 16:51 → NEPFCDU 16:58
PROVIDERS: ADMIT Family Medicine; ATTEND Family Medicine